=== PATIENT | male | born 2000 | race Caucasian/White ===

== ENCOUNTER 2020-01-16 21:54 | Emergency (ER) | payer SELFPAY ==
[~2020-01-16] VITALS: Ht 193 cm; Wt 74.0 kg
[2020-01-16 22:10] VITALS: BP 125/86
[2020-01-16] MEDS ORDERED: LORazepam 1 MG tablet PO ONE (22:20)
--- NOTE | 2020-01-16 22:23 | NUR ---
PT STATES HE DOES NOT WANT THE ORDERED ATIVAN AT THIS TIME. PT STATES "I REALLY DONT LIKE USING DRUGS." STACIA YOUNG MADE AWARE
== END 2020-01-16 23:02 | disposition home or self-care (01) ==
LOC: ER 21:55
DX: R00.2 Palpitations (principal); F41.9 Anxiety disorder, unspecified; Z72.0 Tobacco use
CPT/HCPCS: 93005; 99283